=== PATIENT | male | born 1950 | race Caucasian/White ===

== ENCOUNTER 2019-07-28 07:17 | Day surgery (SDC) | payer MEDICARE, OTHER ==
[~2019-07-28] VITALS: Ht 162.6 cm; Wt 62.6 kg
[~2019-07-28 07:17] MED LIST: CALCIUM MAGNES1 EAC2 PO; COQ-10100 MG PO; IRON325 M1 PO; METFORMIN HCL1000 MG PO; MULTI-DAY PLUS1 EAC1 PO; TRIPLE FLEX CA1 EACH PO; ZOCOR40 MG PO
--- NOTE | 2019-07-28 08:31 | NUR ---
07/28/19 0831 Charmaine Buckner 0833 PT ARRIVED TO PACU PT REACTIVE TO VERBAL STIMULI, PT REORIENTED TO PACU. PT ENCOURAGED TO PASS JAKE AND PT BACK TO SLEEP. 0825 CBG 150. VSS. PT CONTINUES SLEEPING.
--- NOTE | 2019-07-28 10:29 | OR ---
[facility] [address], [place] [address] Signed DATE OF OPERATION: 07/28/2019 SURGEON: Mari John MD PREOPERATIVE DIAGNOSES: 1. Screening. 2. Unremarkable colonoscopy, 2008. POSTOPERATIVE DIAGNOSIS: Unremarkable colonoscopy. PROCEDURE: Colonoscopy without biopsy. ESTIMATED BLOOD LOSS: None. INDICATIONS: Hugo is a 68-year-old gentleman, asked to see me for a followup screening colonoscopy. He underwent a negative colonoscopy back in 2008. His mom actually is 91 years old and still doing fairly well except for some dementia. Hugo himself says he is doing great. He is retired and he says he is enjoying that very much. He has no lower GI complaints. No family history of colon cancer or polyps. I met with Hugo in the office and I gave him a pamphlet on colonoscopy. We reviewed the nature of that test along with its risks including, but not limited to gas, bloating, crampy abdominal pain, bleeding, perforation requiring surgery, and missed diagnosis. He understands the need for IV conscious sedation. He had expressed understanding and wished to proceed. PROCEDURE NOTE: Hugo was taken into our endoscopy suite and placed in the left lateral decubitus position. He was given a total of 9 mg of Versed and 150 mcg of fentanyl to cover the case. A digital rectal exam was performed. I think he does have some induration to the prostate. The left slightly more prominent than the right. The adult colonoscope was introduced and advanced all around into the cecum without difficulty under direct visualization of the camera. His prep was good. The scope was slowly withdrawn. We could easily see the appendiceal orifice and the ileocecal valve. We took pictures throughout for photodocumentation. There was no pathology throughout the entire colon or rectum. Upon retroflexion of the scope, there was no additional pathology noted above the anal canal. After this, the gas was suctioned out and colonoscope removed. Hugo tolerated the procedure quite well. Electronically Signed By: MARI JOHN MD 07/28/19 1029 PATIENT NAME: LISA SUBRAMANIAN OPERATIVE REPORT DATE OF : 48 REPORT #: [id number] PHYSICIAN: MARI JOHN MD PCP: JAKE SLATER PA-C REPORT IS CONFIDENTIAL AND NOT TO BE RELEASED WITHOUT AUTHORIZATION [address] [address] Signed RECOMMENDATIONS: Hugo is welcome to follow up in 10 years for repeat colonoscopy. MD LORNA Osborne/DAVID /[id number] cc: LOREE Palacios MD Copies: MARI JOHN MD ~ Electronically Signed By: MARI JOHN MD 07/28/19 1029 PATIENT NAME: LISA SUBRAMANIAN OPERATIVE REPORT DATE OF : 48 REPORT #: [id number] PHYSICIAN: MARI JOHN MD PCP: JAKE SLATER PA-C REPORT IS CONFIDENTIAL AND NOT TO BE RELEASED WITHOUT AUTHORIZATION
== END 2019-07-28 08:55 | disposition home or self-care (01) ==
LOC: DS 07:17 → OPS 07:17 → DS 08:15 → OPS 08:15
PROVIDERS: Colon & Rectal Surgery
PROC: 0DJD8ZZ Inspection of Lower Intestinal Tract, Via Natural or Artificial Opening Endoscopic (ICD-10-PCS; principal; 2019-07-28 08:15)
DX: Z12.11 Encounter for screening for malignant neoplasm of colon (principal); N40.0 Benign prostatic hyperplasia without lower urinary tract symptoms; E78.5 Hyperlipidemia, unspecified; E11.9 Type 2 diabetes mellitus without complications; Z83.3 Family history of diabetes mellitus; Z98.890 Other specified postprocedural states; Z79.84 Long term (current) use of oral hypoglycemic drugs; Z79.899 Other long term (current) drug therapy
CPT/HCPCS: 99153; G0500; J2250; J3010; J7121